=== PATIENT | male | born 1970 | race Caucasian/White ===

== ENCOUNTER 2021-07-14 13:23 | Emergency (ER) | payer OTHER, SELFPAY ==
--- NOTE | 2021-07-14 13:33 | ED.SKABFB ---
HPI - Skin/Abscess/Foreign Bdy General Chief complaint: Skin/Abscess/Foreign Body Stated complaint: Insect Bite Time Seen by Provider: 07/14/21 13:33 Source: patient and RN notes reviewed History of Present Illness HPI narrative: Patient is a 51-year-old male who presents the urgent care with complaints of a possible insect bite to the left mid back. Patient states he noticed it approximately 2 or 3 weeks ago, it drained, and now his believes that there may be skin surrounding the area . Patient states that he is having no pain, no recent drainage, no fever, chills, nausea or vomiting. Patient denies of seeing an insect on the skin at the time. No other acute complaints. No acute distress noted. Patient aware of the plan of care. Some parts of this dictation were generated by voice recognition software and may contain typographical and/or grammatical inaccuracies. Related Data Home Medications Medication Instructions Recorded Confirmed No Home Medications 07/14/21 07/14/21 Allergies Allergy/AdvReac Type Severity Reaction Status Date / Time Penicillins Allergy Intermediate Swelling Verified 07/14/21 13:37 Review of Systems Review of Systems: CONSTITUTIONAL: Denies fever, chills, or sweats. EYES: Denies visual changes, redness, or discharge. ENT: Denies rhinorrhea, congestion, sore throat, or otalgia. CARDIOVASCULAR: Denies chest pain, palpitations, or edema. RESPIRATORY: Denies cough or dyspnea. GASTROINTESTINAL: Denies abdominal pain, nausea, vomiting, or diarrhea. GENITOURINARY: Denies dysuria or hematuria. SKIN: Reports of a possible insect bite to the left mid back MUSCULOSKELETAL: Denies back pain, joint pain, or myalgia. NEUROLOGIC: Denies headache, numbness, or weakness. All other systems reviewed are negative, except as documented in HPI. [facility] Family History Family History Father Family history of heart disease in male family member before age 55 Grandparent Family history of heart disease in male family member before age 55 Social History Social History Smoking status: Current every day smoker Alcohol intake: current Substance use: never Gender identity (if verbalized by the patient): Male Comments At the time of my signature, I reviewed and agree with the nursing past medical, surgical, social, and family history. There is no relevant family history pertinent to the patient complaint. Exam Narrative: GENERAL: This is a well-nourished, well-developed patient, in no apparent distress. HEAD: normocephalic, atraumatic. EYES: PERRL. Sclera clear/white. Vision is grossly intact. EARS: External ears normal NOSE: External nose normal with no obvious nasal discharge, nares without redness, no rhinorrhea. THROAT: Mucous membranes moist NECK: Neck supple CARDIOVASCULAR: Regular rate and rhythm without murmurs, gallops, or rubs. RESPIRATORY: Clear to auscultation. Breath sounds equal bilaterally. No wheezes, rales, or rhonchi. SKIN: 3 x 3 cm ecchymotic nonraised region to the mid upper back without drainage, warmth, erythema. Warm, intact with no suspicious lesions or rash, good texture and turgor. NEURO: awake, alert, and oriented to person, place and time. There were no obvious focal neurologic abnormalities. EXTREMITIES: No clubbing, cyanosis, or edema. Course Vital Signs Vital signs: Vital Signs Temperature 98.4 F 07/14/21 13:35 Pulse Rate 106 H 07/14/21 13:35 Respiratory Rate 18 07/14/21 13:35 Blood Pressure 177/102 H 07/14/21 13:35 Pulse Oximetry 97 07/14/21 13:35 Temperature 98.4 F 07/14/21 13:35 Pulse Rate 106 H 07/14/21 13:35 Respiratory Rate 18 07/14/21 13:35 Blood Pressure 177/102 H 07/14/21 13:35 Pulse Oximetry 97 07/14/21 13:35 Reviewed-patient is informed that they may have pre-hypertension or hypertension based on a blood
[2021-07-14 13:35] VITALS: BP 177/102; PULSE 106; RESP 18; TEMP 36.9; O2SAT 97
== END 2021-07-14 13:47 | disposition home or self-care (01) ==
PROVIDERS: Emergency Provider Nurse Practitioner Family; PCP Family Medicine
DX: S29.9XXA Unspecified injury of thorax, initial encounter (principal); X58.XXXA Exposure to other specified factors, initial encounter; F17.200 Nicotine dependence, unspecified, uncomplicated
CPT/HCPCS: 99212; G0463

== ENCOUNTER 2021-09-01 00:07 | Day surgery (SDC) | payer OTHER, SELFPAY ==
[2021-08-14 13:50] VITALS: BMI 26.0
[2021-09-01 07:45] VITALS: BP 127/78; PULSE 86; RESP 86; TEMP 36.3; O2SAT 97
[2021-09-01] MEDS: LACTATED RINGERS 1,000 ML 150 ML IV CONT (07:58)
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
[2021-09-01 08:58] VITALS: BP 115/71; PULSE 92; RESP 15; O2SAT 95
[2021-09-01 09:08] VITALS: BP 112/73; PULSE 75; RESP 11; O2SAT 99
[2021-09-01 09:18] VITALS: BP 106/66; PULSE 91; RESP 18; O2SAT 98
== END 2021-09-01 09:21 | disposition home or self-care (01) ==
PROVIDERS: PCP Family Medicine; Visit Provider Internal Medicine Gastroenterology
PROC: 0DJD8ZZ Inspection of Lower Intestinal Tract, Via Natural or Artificial Opening Endoscopic (ICD-10-PCS; CPT 45378; principal; 2021-09-01 09:00)
DX: Z12.11 Encounter for screening for malignant neoplasm of colon (principal); K57.30 Diverticulosis of large intestine without perforation or abscess without bleeding; K64.8 Other hemorrhoids; K63.5 Polyp of colon; Z87.891 Personal history of nicotine dependence
CPT/HCPCS: 45385; 88305; J2001; J2704; J7120